=== PATIENT | female | born 1985 | race Caucasian/White ===

== ENCOUNTER 2018-10-27 06:31 | Day surgery (SDC) | payer BC ==
[~2018-10-27 06:31] MED LIST: Lactated Ringers 1,000 ML IV SCH
[2018-10-27] MEDS ORDERED: DIPRIVAN 200 MG/20 ML IV ONE (06:32)
[2018-10-27 08:50] VITALS: O2SAT 99
[2018-10-27 08:59] VITALS: BP 105/54; PULSE 81
--- NOTE | 2018-10-27 11:43 | OP ---
SURGERY DATE/TIME: 10/27/2018 0759 PREOPERATIVE DIAGNOSIS: Epigastric pain. POSTOPERATIVE DIAGNOSIS: Mild gastritis. PROCEDURE: Esophagogastroduodenoscopy with biopsy. SURGEON: Dr. Johns. ANESTHESIA: Medications were given by the anesthesia department. BRIEF HISTORY: The patient is a 33 year old white female who continues to complain of epigastric pain mostly in the right upper quadrant. The patient previously had ultrasound and HIDA scan which were normal. The patient denies the use of any NSAID's. The patient is felt the need to have endoscopic evaluation. She was appraised of the risks of the procedure including the risk of perforation, phlebitis, untoward reaction to medication, bleeding and missed lesions. The patient verbalized her understanding and desired to have the procedure performed. DESCRIPTION OF PROCEDURE: The patient was given the medications by the anesthesia department. She had continuous pulse oximetry, ECG monitoring, intermittent blood pressure monitoring and tidal CO2 monitoring during the examination. She was placed in the left lateral decubitus position. A bite block was placed. The flexible Olympus gastroscope was used to intubate the oropharynx. A view of the larynx was obtained and was normal. The scope was easily introduced in the esophagus which appeared to be normal throughout its length. The stomach was entered where normal gastric rugal folds were seen and these distended nicely with insufflation of air. The scope was passed along the greater curvature of the stomach to the antrum. The pylorus was encountered and intubated. Duodenum inspected and found to be normal. The scope withdrawn towards the stomach. A retroflex view was obtained of the lesser curvature, fundus and cardia regions of the stomach and these appeared to be essentially normal. The scope was then redirected towards the gastric antrum and biopsies were obtained to rule out the presence of Helicobacter pylori-type organisms. The scope was then removed from the patient who tolerated the procedure well and was sent back to outpatient recovery in good condition.
== END 2018-10-27 09:01 | disposition home or self-care (01) ==
LOC: SDC 06:31
PROVIDERS: ATTEND Family Medicine
DX: K29.70 Gastritis, unspecified, without bleeding (principal); R10.13 Epigastric pain
CPT/HCPCS: 88305; J2704